=== PATIENT | male | born 1985 | race Caucasian/White ===

== ENCOUNTER 2017-12-28 08:58 | Day surgery (SDC) | payer OTHER ==
--- NOTE | 2017-12-28 08:00 | HP ---
DATE OF SURGERY: 12/28/2017 HISTORY OF PRESENT ILLNESS: The patient is a 32 year-old with enlarging subcutaneous mass in his bilateral upper extremities increasing in size the past year, increasing aches and pains, enlarged on the right not to large on the left little smaller ones, increasing pain, increasing size subcutaneous masses in need of excision. PAST MEDICAL HISTORY: Hypothyroidism. PAST SURGICAL HISTORY: Appendectomy. MEDICATIONS: Levothyroxine. ALLERGIES: PENICILLIN. FAMILY HISTORY: Negative in regards to this problem. SOCIAL HISTORY: Half pack per day smoker, denies alcohol abuse. REVIEW OF SYSTEMS: Twelve systems reviewed per admission assessment. No chest pain or palpitations other systems negative or noncontributory as above and per preadmission questionnaire. PHYSICAL EXAMINATION: GENERAL: No acute distress. HEENT: Sclerae nonicteric. NECK: No JVD. CHEST: Equal excursion, nonlabored breathing. CVS: Regular rate and rhythm. ABDOMEN: Soft. EXTREMITIES: As noted above. NEURO: Alert, oriented, moving extremities symmetrically. No gross motor deficits noted. IMPRESSION: Enlarging subcutaneous masses bilateral extremities in need of excision. Risks and benefits explained in detail including but not limited to bleeding or infection, small risk of hematoma or seroma formation, risk of wound dehiscence possibly requiring packing, general risk of aches, pains, burning or numbness possibly senior care or chronic in nature. He also understands what we excise likely will not recur but he could get similar nodules or nodules adjacent to or elsewhere on his body. He understands and agrees to the planned procedure, will proceed with excisional biopsy of bilateral upper extremity subcutaneous masses or lipomas as an outpatient.
[~2017-12-28 08:58] MED LIST: Lactated Ringers 1,000 ML IV ONE; Levofloxacin 500MG/100ML D5W 500 MG/100 ML BAG IV ONE; Sensorcaine 0.25% 10 ML ONE
[2017-12-28] MEDS ORDERED: SUBLIMAZE 100 MCG/2 ML IV ONE (08:59)
[2017-12-28] MEDS ORDERED: Decadron 4 MG INJ IV ONE (08:59)
[2017-12-28] MEDS ORDERED: TORAdol 30 mg Injection IV ONE (08:59)
[2017-12-28] MEDS ORDERED: DILAUDID 2 MG INJECTION IV ONE (08:59)
[2017-12-28] MEDS ORDERED: Zofran 4 MG/2 ML VIAL IV ONE (08:59)
[2017-12-28] MEDS ORDERED: DIPRIVAN 200 MG/20 ML IV ONE (08:59)
[2017-12-28] MEDS: Lactated Ringers 1,000 ML IV SCH ×2 (09:56→10:27)
[2017-12-28] MEDS: Levofloxacin 500MG/100ML D5W 500 MG/100 ML BAG IV ONE ×2 (09:56→10:27)
[2017-12-28] MEDS ORDERED: Sensorcaine 0.25% 10 ML ONE (12:16)
[2017-12-28] MEDS ORDERED: DILAUDID 2 MG INJECTION ONE (14:40)
[2017-12-28 15:32] VITALS: BP 140/97; PULSE 100; O2SAT 99
--- NOTE | 2017-12-29 08:27 | OP ---
SURGERY DATE/TIME: 12/28/2017 1230 PREOPERATIVE DIAGNOSIS: Enlarging symptomatic painful, bilateral upper extremity subcutaneous masses, five on the right arm and four on the left arm. POSTOPERATIVE DIAGNOSIS: Enlarging symptomatic painful, bilateral upper extremity subcutaneous masses, five on the right arm and four on the left arm. Lipomatous densities. PROCEDURES: 1) Excision and biopsy of left upper arm approximately 2.5 cm lipomatous density with intermediate closure. 2) Excision and biopsy of left elbow lipomatous density approximately 2.5 cm with intermediate closure. 3) Excision and biopsy of radial aspect left forearm 2.5 cm lipomatous density with intermediate closure. 4) Excision and biopsy of ulnar aspect left forearm approximately 3.5 cm lipomatous density with intermediate closure. 5) Excision and biopsy of 5 cm upper right arm lipomatous density with intermediate closure. 6) Excision and biopsy of right elbow lipomatous density approximately 1.7 cm with intermediate closure. 7) Excision and biopsy of ulnar aspect right forearm approximately 4 cm lipomatous density with intermediate closure. 8) Excision and biopsy of anterior right forearm lipomatous density approximately 5 cm lipomatous density with intermediate closure. 9) Excision and biopsy of radial aspect of right forearm lipomatous density approximately 6 cm with intermediate closure. SURGEON: Dr. Artur Vance. ANESTHESIA: General. ESTIMATED BLOOD LOSS: Minimal. INDICATIONS: As noted above. Risks and benefits explained in detail and not limited to and consent obtained. The patient had been marked in the holding area. DESCRIPTION OF PROCEDURE AND FINDINGS: The patient is taken to the operating room. General anesthesia introduced. Prepped and draped in usual sterile fashion. After official time out and no disagreement with planned procedure, first the left upper arm longitudinal incision made overlying palpable density this was about 2.5 cm with margins underneath. It was passed off and closed in intermediate fashion with 3-0 and 4-0 Vicryl. Over the left elbow area small incision made. Dissection carried down this was more of a lobulated lipomatous density that is about 2.5 cm in size carefully dissected free from underlying fascia and passed off. It measured about 2.5 cm and closed in intermediate fashion with 3-0 Vicryl and 4-0 Vicryl. Then went to the radial aspect of left forearm. Longitudinal incision made overlying the density. Dissection carried down circumferentially around and this lipomatous density is about 2.5 cm in size. It was passed off. Good hemostasis noted. It was closed in intermediate fashion with 3-0 and 4-0 Vicryl. Then proceeded with the ulnar aspect of the left forearm this density is larger. A longitudinal incision made dissection carried down and dissection carried circumferentially around this mobilized up off the underlying fascia this measured 2.5 cm in size passed off for pathology. The wound was closed in intermediate fashion with 3-0 Vicryl to close the deep and superficial subcu. Skin closed with 4-0 Vicryl. Steri-Strips and sterile dressing applied on all of these wounds at the end of the procedure. Gloves and instruments were changed. Attention was then turned to the right upper extremity starting first at the right upper arm. A transverse incision made this is more of a lobulated dense lipomatous density measuring about 5 cm in size carefully dissected free from the underlying fascia and passed off. Dissected away from normal appearing subcutaneous fat and around this area. This was closed with 3-0 Vicryl in deep superficial subcu in interrupted fashion. The skin closed with 4-0 Vicryl in running subcuticular fashion. Steri-Strips and sterile dressing applied at the end of the procedure. I then proceeded with the right elbow. A longitudinal incision made overlying dissection carried down circumferentially around and this appeared to be 1.7 cm lipomatous density that is carefully freed and passed off. The wound is closed with 3-0 Vicryl and 4-0 Vicryl intermediate fashion. Attention is then to the ulnar aspect of the right forearm. Longitudinal incision made dissection carried down circumferentially around a 4 cm lipomatous density and carefully freed from underlying tissue and passed off from the underlying fascia. Hemostasis controlled with pin point cautery. Good hemostasis noted. The wound is then closed with interrupted 3-0 Vicryl in superficial subcu. Skin closed with 4-0 Vicryl. Steri-Strips and sterile dressing applied at the end of the procedure. Attention is then turned to the anterior right forearm. Longitudinal incision made dissection carried down circumferentially around this lipomatous density. It is larger about 5 cm in size. Slowly and carefully freed from the surrounding tissue underlying fascia and passed off. Good hemostasis noted. It was closed in intermediate fashion in deep superficial subcu closed with 3-0 Vicryl. Skin closed with 4-0 Vicryl. Steri-Strips and sterile dressing applied at the end of the procedure. Attention is then turned to the radial aspect of the right forearm. A longitudinal incision made dissection carried down circumferentially around this area slowing and carefully freeing from the underlying fascia. This was accomplished as carefully and safely as possible. Pin point cautery on small vessels going directly into the lipoma staying directly on the lipomatous density capsule and this is passed off this measured about 6 cm in size. Good hemostasis noted. The wound is then closed in intermediate fashion with deep superficial subcu closed with 3-0 Vicryl. Skin closed with 4-0 Vicryl. Steri-Strips and sterile dressing applied. Sterile dressings were applied. The patient tolerated the procedure well. There were no immediate complications. There were five on the right arm and four on the left arm removed. The patient tolerated the procedure well. Findings discussed with the family out in the waiting area. He is transferred to the recovery room in stable condition.
== END 2017-12-28 16:09 | disposition home or self-care (01) ==
LOC: SDC 08:58
PROVIDERS: ATTEND Surgery
PROC: 0JBH0ZZ Excision of Left Lower Arm Subcutaneous Tissue and Fascia, Open Approach (ICD-10-PCS; principal; 2017-12-28)
PROC: 0JBF0ZZ Excision of Left Upper Arm Subcutaneous Tissue and Fascia, Open Approach (ICD-10-PCS; 2017-12-28)
PROC: 0JQG0ZZ Repair Right Lower Arm Subcutaneous Tissue and Fascia, Open Approach (ICD-10-PCS; 2017-12-28)
PROC: 0JQD0ZZ Repair Right Upper Arm Subcutaneous Tissue and Fascia, Open Approach (ICD-10-PCS; 2017-12-28)
PROC: 0JBG0ZZ Excision of Right Lower Arm Subcutaneous Tissue and Fascia, Open Approach (ICD-10-PCS; 2017-12-28)
PROC: 0JBD0ZZ Excision of Right Upper Arm Subcutaneous Tissue and Fascia, Open Approach (ICD-10-PCS; 2017-12-28)
DX: D17.21 Benign lipomatous neoplasm of skin and subcutaneous tissue of right arm (principal); R20.8 Other disturbances of skin sensation; E03.9 Hypothyroidism, unspecified; Z72.0 Tobacco use
CPT/HCPCS: 88304; 94250; J1100; J1170; J1885; J1956; J2405; J2704; J3010